=== PATIENT | female | born 1965 | race African-American/Black ===

== ENCOUNTER 2020-10-25 08:40 | Emergency (ER) | payer OTHER, SELFPAY ==
[2020-10-25 08:55] VITALS: BP 138/76; PULSE 91; RESP 16; TEMP 36.9; O2SAT 100
--- NOTE | 2020-10-25 09:21 | ED.SKABFB ---
HPI - Skin/Abscess/Foreign Bdy General Chief complaint: Skin/Abscess/Foreign Body Stated complaint: allegic reaction Time Seen by Provider: 10/25/20 09:00 Source: patient, RN notes reviewed and other (Caregiver) Mode of arrival: ambulatory Limitations: no limitations History of Present Illness HPI narrative: Patient presents today complaining of allergic reaction. Symptoms began yesterday, but cause of symptoms is unknown. Caregiver states patient ate food yesterday that she has eaten all before. States patient was talking abnormally yesterday, but this has resolved today. She has been taking Benadryl, which has provided some relief. Patient states she does have soreness in her throat, especially when she swallows. She also reports puffiness in her eyes. MD complaint: other (Allergic reaction) Related Data Home Medications Medication Instructions Recorded Confirmed docusate sodium [Colace] 100 mg PO BID 06/13/19 06/13/19 folic acid 1 mg PO DAILY 06/13/19 06/13/19 ibuprofen 600 mg PO Q6H PRN 06/13/19 06/13/19 lamotrigine 200 mg PO BID 06/13/19 06/13/19 levothyroxine 75 mcg PO DAILY 06/13/19 06/13/19 losartan-hydrochlorothiazide 1 tablet PO DAILY 06/13/19 06/13/19 mirtazapine 30 mg PO HS 06/13/19 06/13/19 phenytoin sodium extended 300 mg PO HS 06/13/19 06/13/19 polyethylene glycol 3350 [Miralax] 17 g PO DAILY 06/13/19 06/13/19 pravastatin 20 mg PO HS 06/13/19 06/13/19 sertraline 150 mg PO DAILY 06/13/19 06/13/19 albuterol sulfate [Ventolin HFA] 90 mcg INHALATION PRN PRN 10/25/20 10/25/20 aripiprazole 15 mg PO DAILY 10/25/20 10/25/20 clonazepam 1 mg PO TID 10/25/20 10/25/20 famotidine 40 mg PO DAILY 10/25/20 10/25/20 lacosamide [Vimpat] 100 mg PO DIRECTED 10/25/20 10/25/20 lithium carbonate 300 mg PO DAILY 10/25/20 10/25/20 trazodone 100 mg PO HS 10/25/20 10/25/20 Allergies Allergy/AdvReac Type Severity Reaction Status Date / Time acetaminophen AdvReac Mild Hives Verified 10/25/20 09:02 Review of Systems Review of Systems: Narrative: CONSTITUTIONAL: Denies body aches, fever, chills, or sweats. EYES: Denies visual changes, redness, or discharge. +eyelid puffiness ENT: Denies rhinorrhea, congestion, or otalgia.+ Sore throat CARDIOVASCULAR: Denies chest pain, palpitations, or edema. RESPIRATORY: Denies cough or dyspnea. GASTROINTESTINAL: Denies abdominal pain, nausea, vomiting, or diarrhea. GENITOURINARY: Denies dysuria or hematuria. SKIN: Denies rash, itching, or wounds. MUSCULOSKELETAL: Denies back pain, joint pain, or myalgia. NEUROLOGIC: Denies headache, numbness, tingling, or weakness. PSYCH: Denies depression or anxiety. [facility] Past Medical History Medical History (Updated 10/25/20 @ 09:24 by Bijal Perez, [facility], ) Cerebral palsy Intractable epilepsy Surgical History Surgical History (Updated 06/14/19 @ 15:43 by Jean Paul James MD) Status post biventricular pacemaker Social History Social History Smoking status: Never smoker Second hand tobacco smoke exposure: No Alcohol intake: never Substance use: never Gender identity (if verbalized by the patient): Female Spiritual care concerns: No Agree to blood products: No Comments At time of signature, I have reviewed and agree with nursing past medical, surgical, social and family history unless otherwise noted. Please see nursing chart for further information. There is no relevant family history pertinent to the presenting complaint Exam Narrative: Exam Narrative: GENERAL: chronically ill-appearing, well-nourished, and in no acute distress. HEAD: Normocephalic, atraumatic. EYES: EOMI. PERRL. No redness or drainage. Conjunctivae normal. Moderate edema to bilateral upper and lower eyelids. ENT: Mucous membranes pink and moist. Nares clear. No rhinorrhea. Throat normal. Uvula midline. Speech somewhat slurred, but reported baseline by caregiver due to previous CVA. NECK: Normal AROM. Supple. No lymphadenopathy. CHEST: No respir
== END 2020-10-25 09:30 | disposition home or self-care (01) ==
PROVIDERS: Emergency Provider Nurse Practitioner
DX: H02.849 Edema of unspecified eye, unspecified eyelid (principal); J02.9 Acute pharyngitis, unspecified; T78.40XA Allergy, unspecified, initial encounter; X58.XXXA Exposure to other specified factors, initial encounter; G80.9 Cerebral palsy, unspecified; G40.919 Epilepsy, unspecified, intractable, without status epilepticus; I69.928 Other speech and language deficits following unspecified cerebrovascular disease
CPT/HCPCS: 99213; G0463

== ENCOUNTER 2020-11-18 15:52 | Emergency (ER) | payer OTHER, SELFPAY ==
[2020-11-18 16:01] VITALS: BP 121/69; PULSE 86; RESP 20; TEMP 36.8; O2SAT 100
--- NOTE | 2020-11-18 16:15 | ED.SKABFB ---
HPI - Skin/Abscess/Foreign Bdy General Chief complaint: Skin/Abscess/Foreign Body Stated complaint: Neck rash Time Seen by Provider: 11/18/20 16:15 Source: patient, family and RN notes reviewed Mode of arrival: ambulatory Limitations: no limitations History of Present Illness HPI narrative: 55 year old female who presents to express care with complaints of rash to the back of her neck which started yesterday. Patient denies any new soaps, lotions, shampoos, laundry soaps, medications or foods, unsure what could of caused rash, denies any exposure to pets, or known insect bites. Caregiver with patient states that the size of the macules and redness have decreased today, denies any burning to area states itching and irritation. No OTC medication taken or applied to skin rash. MD complaint: rash Onset (ago): day(s) ( day 2 of symptoms) Tetanus up to date: unsure Location: neck (posterior neck) Severity: moderate Severity scale (1-10): 10 Quality: pruritic Pain Consistency: colicky Relieving factors: none Context: none Associated symptoms: other (itchy) Treatments prior to arrival: none Related Data Home Medications Medication Instructions Recorded Confirmed docusate sodium [Colace] 100 mg PO BID 06/13/19 11/18/20 folic acid 1 mg PO DAILY 06/13/19 11/18/20 ibuprofen 600 mg PO Q8H PRN 06/13/19 11/18/20 lamotrigine 250 mg PO BID 06/13/19 11/18/20 levothyroxine 75 mcg PO DAILY 06/13/19 11/18/20 phenytoin sodium extended 200 mg PO HS 06/13/19 11/18/20 polyethylene glycol 3350 [Miralax] 17 g PO DAILY 06/13/19 11/18/20 pravastatin 20 mg PO HS 06/13/19 11/18/20 sertraline 150 mg PO DAILY 06/13/19 11/18/20 aripiprazole 20 mg PO DAILY 10/25/20 11/18/20 clonazepam 1.5 mg PO TID 10/25/20 11/18/20 famotidine 20 mg PO BID 10/25/20 11/18/20 lacosamide [Vimpat] 100 mg PO BID 10/25/20 11/18/20 lithium carbonate 300 mg PO HS 10/25/20 11/18/20 trazodone 100 mg PO HS 10/25/20 11/18/20 bismuth subsalicylate [Bismatrol] 11/18/20 diphenhydramine HCl [Banophen] 25 mg PO QID 11/18/20 11/18/20 levetiracetam 1,500 mg PO BID 11/18/20 11/18/20 losartan 50 mg PO DAILY 11/18/20 11/18/20 meloxicam 7.5 mg PO DAILY 11/18/20 11/18/20 Allergies Allergy/AdvReac Type Severity Reaction Status Date / Time acetaminophen AdvReac Mild Hives Verified 11/18/20 16:01 Review of Systems Review of Systems: Narrative: CONSTITUTIONAL: Denies fever, chills, or sweats. EYES: Denies visual changes, redness, or discharge. ENT: Denies rhinorrhea, congestion, sore throat, or otalgia. CARDIOVASCULAR: Denies chest pain, palpitations, or edema. RESPIRATORY: Denies cough or dyspnea. GASTROINTESTINAL: Denies abdominal pain, nausea, vomiting, or diarrhea. GENITOURINARY: Denies dysuria or hematuria. SKIN: Positive for rash or itching to posterior neck MUSCULOSKELETAL: Denies back pain, joint pain, or myalgia. NEUROLOGIC: Denies headache, numbness, or weakness. PSYCHIATRIC: Denies anxiety or depression. All systems reviewed & are unremarkable except as noted in HPI and below PMFSH Past Medical History Medical History (Updated 11/19/20 @ 00:00 by Background Daemon) Cerebral palsy Hyperlipidemia Hypertension Hypothyroidism Intractable epilepsy Schizophrenia Surgical History Surgical History (Updated 11/18/20 @ 16:50 by Sarah Beth Tello NP) H/O craniotomy left anterior lobectomy to control seizures Previous section Status post biventricular pacemaker Family History Family History (Updated 11/18/20 @ 16:36 by Sarah Beth Tello NP) Other No significant family history Social History Social History Smoking status: Never smoker Second hand tobacco smoke exposure: No Alcohol intake: never Substance use: never Gender identity (if verbalized by the patient): Female Spiritual care concerns: No Agree to blood products: No Comments At time of signature, agree with nursing past medical, surgical, social and family history. There is no relev
== END 2020-11-18 16:38 | disposition home or self-care (01) ==
PROVIDERS: Emergency Provider Registered Nurse
DX: L30.9 Dermatitis, unspecified (principal); G80.9 Cerebral palsy, unspecified; E78.5 Hyperlipidemia, unspecified; I10 Essential (primary) hypertension; E03.9 Hypothyroidism, unspecified; G40.919 Epilepsy, unspecified, intractable, without status epilepticus; F20.9 Schizophrenia, unspecified; Z95.0 Presence of cardiac pacemaker
CPT/HCPCS: 99213; G0463

== ENCOUNTER 2021-04-12 12:11 | Outpatient (CLI) | payer OTHER, SELFPAY ==
--- NOTE | ~2021-04-12 | XR_ITS ---
EXAMINATION: XR knee LT 3V DATE: 04/12/2021 12:57 INDICATION: Left knee pain. TECHNIQUE: 3 views of left knee were obtained. COMPARISON: None. FINDINGS: Bone alignment is normal. No fracture. There is moderate osteoarthritis of medial compartme nt, mild osteoarthritis of lateral compartment, and severe osteoarthritis of patellofemoral compartme nt. No knee joint effusion. IMPRESSION: 1. Severe left knee osteoarthritis. Reviewed, dictated and finalized at location A.
== END 2021-04-12 12:12 | disposition home or self-care (01) ==
DX: M17.12 Unilateral primary osteoarthritis, left knee (principal)
CPT/HCPCS: 73562

== ENCOUNTER 2021-12-02 16:22 | Outpatient (CLI) | payer OTHER, SELFPAY ==
--- NOTE | ~2021-12-02 | XR_ITS ---
XR hand RT 2V DATE: 12/02/2021 17:04 INDICATION: Bilateral hand pain TECHNIQUE: AP and lateral views COMPARISON: None FINDINGS: There is fusion of the lunate and triquetrum bones, vomiting.. No fracture or dislocation, periosteal reaction or bone destruction. There is mild osteoarthritis at the interphalangeal joints. IMPRESSION: Mild osteoarthritis at interphalangeal joints Fusion of triquetrum and lunate bones, anatomic variant Reviewed, dictated and finalized at location A.
--- NOTE | ~2021-12-02 | XR_ITS ---
XR hand LT 2V DATE: 12/02/2021 17:05 INDICATION: Bilateral hand pain TECHNIQUE: AP and lateral views COMPARISON: None FINDINGS: A pin extends along the dorsal aspect of the capitate and medial base and metaphysis very p roximal shaft of the second metacarpal bone. There is osteoarthritic change at the triscaphe and first carpometacarpal joint and some metacarpopha langeal and interphalangeal joints, most prominently the distal interphalangeal joint of the third di git. No fracture or dislocation, periosteal reaction or bone destruction is detected. IMPRESSION: Radiopaque pin overlying the dorsal aspect of the capitate and proximal aspect of second metacarpal bone Polyarticular osteoarthritis Reviewed, dictated and finalized at location A. IMPRESSION: Radiopaque pin overlying the dorsal aspect of the capitate and prox imal aspect of second metacarpal bone Polyarticular osteoarthritis
== END 2021-12-02 16:23 | disposition home or self-care (01) ==
DX: M19.042 Primary osteoarthritis, left hand (principal); M19.041 Primary osteoarthritis, right hand
CPT/HCPCS: 73120